=== PATIENT | female | born 1980 | race Caucasian/White ===

== ENCOUNTER 2017-12-14 15:35 | Inpatient (IN) | payer MEDICAID ==
[~2017-12-14] VITALS: Ht 160 cm; Wt 94.9 kg
[2017-12-14] MEDS ORDERED: ONDANSETRON HCL 4 MG/2 ML VIAL IV PUSH PRN (18:00)
[2017-12-14] MEDS ORDERED: RESP: ALBUTEROL 2.5 MG/IPRATROPIUM 0.5 MG NEB (PRN) INH (18:00)
[2017-12-14] MEDS ORDERED: HYDROmorphone HCL PF 1 MG/ML VIAL IV PUSH PRN (18:00)
[2017-12-14] MEDS ORDERED: CHLORHEXIDINE GLUCONATE 2 % 1 PACK (2 CLOTHS) TOP PRN (18:00)
[2017-12-14] MEDS ORDERED: MISCELLANEOUS NURSING INFORMATION XX SCH (18:00)
[2017-12-14] MEDS: HYDROmorphone HCL PF 2 MG/ML VIAL IV PRN ×3 (18:15→22:43)
--- NOTE | 2017-12-14 18:38 | HHI.HP ---
[facility] Service Critical Care Medicine Primary Care Physician Unknown Admission Diagnosis Diagnosis: Chief Complaint: right flank pain Travel History International Travel<30 Days: No Contact w/Intl Traveler <30 Da: No Traveled to Known Affected Are: No History of Present Illness This is a 37yF with a history of renal calculi who presented to OSH on 12/08 with complaints of right flank pain and was found to have obstructive nephrolithiasis and obstructive pyelonephritis. She underwent ureteral stenting on 12/11 which per urology report was unsuccessful at resolving right hydronephrosis. her pain persists and she is transferred to [facility] for higher level of care and urology specialists. I evaluated the patient upon arrival to the ICU. patient is awake, alert. does complain of right flank pain. denies fever, chills, nausea, vomiting or other symptoms. remainder of the ROS negative. Of note, the patient has a documented positive urinalysis for nitrites, LE, and wbcs on 12/09. physician documentation states that she has a history of e. coli and enterococcus faecalis UTIs which in the past were sensitive to Levaquin. She was initially placed on Levaquin but then reportedly switched to Rocephin on 12/11. Physician documentation on 12/13 states she is growing e. coli that is sensitive to Rocephin, but no microbiologic data has been sent with the patient. Review of Systems Constitutional: DENIES: Fatigue, Fever, Chills Respiratory: DENIES: Shortness of breath Cardiovascular: DENIES: Chest pain Gastrointestinal: DENIES: Abdominal pain, Nausea, Vomiting Genitourinary: COMPLAINS OF: Dysuria, DENIES: Urinary frequency, Urinary incontinence, Hematuria Musculoskeletal: DENIES: Back pain, Neck pain Neurologic: DENIES: Headache ROS + right flank pain Past Family Social History Allergies: Coded Allergies: amoxicillin (Verified Allergy, Severe, 12/14/17) clavulanic acid (Verified Allergy, Severe, 12/14/17) gabapentin (Verified Allergy, Severe, 12/14/17) Past Medical History recurrent renal calculi patient did not recount any additional past medical history. per OSH reports: HCV mildly elevated transaminases prior MRSA bacteremia Past Surgical History lithotripsy Reported Medications none Active Ordered Medications See MAR Family History negative for kidney stones or genitourinary problems. Social History smokes 1 pack ever 3 days, denies any etoh use. denies other drugs. 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 Physical Exam Physical Exam gen: young female, sitting in bed, in distress due to flank pain heent: nc. at. perrl. mmm. neck: no jvd. trachea midline. chest: room air. unlabored. equal chest rise cv: normal rate, regular rhythm. sinus. abd: soft, nontender anteriorly. +CVA tenderness on the right with only light palpation. no peritoneal guarding. extr: no peripheral edema. extremities are warm and well perfused. distal pulses 2+ neuro: RASS 0. GCS 15. follows commands. no focal deficits. Caprini VTE Risk Assessment Caprini VTE Risk Assessment: Mod/High Risk (score >= 2) Caprini Risk Assessment Model Point Value = 1 Point Value = 2 Point Value = 3 Point Value = 5 Age 41-60 Minor surgery BMI > 25 kg/m2 Swollen legs Varicose veins or History of unexplained or recurrent spontaneous Oral contraceptives or hormone replacement Sepsis (< 1 month) Serious lung disease, including pneumonia (< 1 month) Abnormal pulmonary function Acute myocardial infarction Congestive heart failure (< 1 month) History of inflammatory bowel disease Medical patient at bed rest Age 61-74 Arthroscopic surgery Major open surgery (> 45 min) Laparoscopic surgery (> 45 min) Malignancy Confined to bed (> 72 hours) Immobilizing plaster cast Central venous access Age >= 75 History of VTE Family history of VTE Factor V Leiden Prothrombin [id number] Lupus anticoagulant Anticardiolipin antibodies Elevated serum homocysteine Heparin-induced thrombocytopenia Other congenital or acquired thrombophilia Stroke (< 1 month) Elective arthroplasty Hip, pelvis, or leg fracture Acute spinal cord injury (< 1 month) Prophylaxis Regimen Total Risk Factor Score Risk Level Prophylaxis Regimen 0-1 Low Early ambulation 2 Moderate Order ONE of the following: *Sequential Compression Device (SCD) *Heparin 5000 units SQ BID 3-4 Higher Order ONE of the following medications: *Heparin 5000 units SQ TID *Enoxaparin/Lovenox 40 mg SQ daily (WT < 150 kg, CrCl > 30 mL/min) *Enoxaparin/Lovenox 30 mg SQ daily (WT < 150 kg, CrCl > 10-29 mL/min) *Enoxaparin/Lovenox 30 mg SQ BID (WT < 150 kg, CrCl > 30 mL/min) AND/OR *Sequential Compression Device (SCD) 5 or more Highest Order ONE of the following medications: *Heparin 5000 units SQ TID (Preferred with Epidurals) *Enoxaparin/Lovenox 40 mg SQ daily (WT < 150 kg, CrCl > 30 mL/min) *Enoxaparin/Lovenox 30 mg SQ daily (WT < 150 kg, CrCl > 10-29 mL/min) *Enoxaparin/Lovenox 30 mg SQ BID (WT < 150 kg, CrCl > 30 mL/min) AND *Sequential Compression Device (SCD) Assessment and Plan Assessment and Plan Assessment: 37yF with recurrent renal calculi admitted with obstructive pyelonephritis and right obstructive hydronephrosis. I have spoken with urology and interventional radiology. we will repeat non-contrasted CT Abd/pelvis to evaluate amount of residual hydronephrosis. keep NPO at midnight for possible percutaneous nephrostomy tube. iv pain control. will obtain urine culture here and attempt to obtain OSH micro records. will continue Rocephin empirically until data can be obtained. Hemodynamically stable and can transfer out of ICU. Obstructive Hydronephrosis - consult urology - NPO at NM for possible percutaneous nephrostomy tube - interventional radiology consult - send CMP, CBC, coags, type and screen to eval trend in renal function Obstructive pyelonephritis - continue empiric Rocephin 1gm iv q24h - send u/a - f/u micro results from OSH SCDs hold pharmacologic DVT prophylaxis for possible intervention tomorrow no evidence-based indication for GI prophylaxis at this time. Dispo: stable for transfer to floor. consult hospitalist. I certify that inpatient services are required and the patient has an estimated LOS of greater than 2 midnights. The patient has high risk obstructive uropathy and pyelonephritis which requires inpatient pain medication, management by urology with the possible complications of acute worsening kidney failure. Rene Rivera MD Dec 14, 2017 18:38
[2017-12-14 18:59] LABS: HEMATOCRIT 36.2 % (35.0-46.0); HEMOGLOBIN 12.3 GM/DL (11.6-15.3); MEAN CELL VOLUME 83.9 FL (80.0-100.0); MEAN CORPUSCULAR HEMOGLOBIN 28.5 PG (27.0-34.0); MEAN CORPUSCULAR HGB CONC 33.9 % (32.0-36.0); MEAN PLATELET VOLUME 7.8 FL (7.0-11.0); PLATELET COUNT 326 TH/MM3 (150-450); RED BLOOD COUNT 4.31 MIL/MM3 (4.00-5.30); RED CELL DISTRIBUTION WIDTH 13.2 % (11.6-17.2); WHITE BLOOD COUNT 7.4 TH/MM3 (4.0-11.0)
[2017-12-14 19:08] LABS: AST (GOT) 102 U/L (15-37); BICARBONATE 24.8 MEQ/L (21.0-32.0); BLOOD UREA NITROGEN 7 MG/DL (7-18); CALCIUM 8.6 MG/DL (8.5-10.1); CHLORIDE 109 MEQ/L (98-107); CREATININE 0.81 MG/DL (0.50-1.00); GLOMERULAR FILTRATION RATE 80 ML/MIN (>89); GLUCOSE,RANDOM 71 MG/DL (74-106); SODIUM (NA) 140 MEQ/L (136-145)
[2017-12-14 19:10] LABS: ALT (GPT) 150 U/L (10-53)
[2017-12-14 19:13] LABS: ALKALINE PHOSPHATASE 116 U/L (45-117); TOTAL BILIRUBIN ADULT 0.2 MG/DL (0.2-1.0); TOTAL PROTEIN 7.4 GM/DL (6.4-8.2)
--- NOTE | 2017-12-14 19:19 | RADRPT ---
EXAM DATE/TIME: 12/14/2017 18:49 [place] COMPARISON: No previous studies available for comparison. INDICATIONS : Abdominal pain evaluate for right hydronephrosis. ORAL CONTRAST: No oral contrast ingested. RADIATION DOSE: 15.38 CTDIvol (mGy) MEDICAL HISTORY : Renal calculi. hydronephrosis SURGICAL HISTORY : ureteral stent, lithrotripsy ENCOUNTER: Initial ACUITY: 1 week PAIN SCALE: Non-responsive LOCATION: Bilateral Abdomen TECHNIQUE: Volumetric scanning of the abdomen and pelvis was performed. Using automated exposure control and ad justment of the mA and/or kV according to patient size, radiation dose was kept as low as reasonably achievable to obtain optimal diagnostic quality images. DICOM format image data is available electro nically for review and comparison. FINDINGS: Lung bases are clear. No acute findings in the liver, spleen, adrenals, left kidney or pancreas. No c alcified gallstones. There is a staghorn calculus lower pole right kidney measuring up to 4.4 x 2.1 cm. Right-sided ureter al stent present extending from the right renal pelvis to the bladder. There is mild constipation. No free air or free fluid. No adenopathy. No acute bony abnormalities. De generative changes of the sacroiliac joints. CONCLUSION: 1. Staghorn calculus right kidney with right ureteral stent present. Mild dilatation of right renal c ollecting system and right ureter. No left-sided renal calculi or obstructive uropathy. Dong Madden MD on December 14, 2017 at 19:14 Board Certified Radiologist. This report was verified electronically.
[2017-12-14 20:00] VITALS: BP 129/83; PULSE 70; PULSE 77; RESP 22; TEMP 98.7; O2SAT 99
[2017-12-14 20:43] LABS: INTERNATIONAL NORMALIZED RATIO 1.1 RATIO; PROTHROMBIN TIME - PATIENT 10.8 SEC (9.8-11.6)
[2017-12-14 21:00] VITALS: BP 129/54; PULSE 72; RESP 22; O2SAT 100
[2017-12-14] MEDS: cefTRIAXone INJ 1,000 MG in SODIUM CHLORIDE 0.9% INJ 100 ML IV SCH (21:33)
[2017-12-14 22:47] VITALS: BP 117/68; PULSE 73; PULSE 77; RESP 18; TEMP 98.3; O2SAT 96
[2017-12-14 23:55] LABS: BACTERIA, URINE RARE /hpf; BILIRUBIN, URINE NEG (NEG); BLOOD, URINE MOD (NEG); GLUCOSE,URINE NEG (NEG); KETONE, URINE NEG (NEG); MUCUS URINE FEW /lpf (OCC); NITRITE,URINE NEG (NEG); SQUAMOUS EPITHELIAL CELL URINE 5 /hpf (0-5); URINE COLOR YELLOW (YELLW/STRAW); URINE LEUKOCYTE ESTERASE LARGE (NEG); WHITE BLOOD CELL CLUMPS FEW
[2017-12-15] VITALS (8 sets, daily range): BP systolic 123–143; BP diastolic 62–80; PULSE 64–83; RESP 17–18; TEMP 97.8–98.8; O2SAT 96–97
[2017-12-15] MEDS: HYDROmorphone HCL PF 2 MG/ML VIAL IV PRN ×7 (00:52→18:55)
[2017-12-15] MEDS: CHLORHEXIDINE GLUCONATE 2 % 1 PACK (2 CLOTHS) TOP SCH (03:38)
--- NOTE | 2017-12-15 09:52 | HHI.PR ---
Subjective Remarks The patient said that her pain was poorly controlled. She said she has had over 50 kidney stones since the age of 10. She said she has tried to get rid of soda from her diet. She said she was unsure of when she was going for her procedure. Discussed with nursing. Objective Vitals Vital Signs Date Time Temp Pulse Resp B/P (MAP) Pulse Ox O2 Delivery O2 Flow Rate FiO2 12/15/17 08:00 98.1 65 17 123/80 (94) 96 12/15/17 05:06 64 12/15/17 04:00 98.1 72 18 124/75 (91) 96 12/15/17 00:00 98.5 75 18 128/62 (84) 97 12/15/17 00:00 80 12/14/17 22:47 77 12/14/17 22:47 98.3 73 18 117/68 (84) 96 12/14/17 21:56 Room Air 12/14/17 21:00 72 22 129/54 (79) 100 12/14/17 20:00 98.7 70 22 129/83 (98) 99 12/14/17 20:00 77 12/14/17 19:00 100 Room Air I/O 12/14/17 12/14/17 12/14/17 12/15/17 12/15/17 12/15/17 07:00 15:00 23:00 07:00 15:00 23:00 Intake Total 480 ml Output Total 350 ml Balance 130 ml Intake Oral 480 ml Output Urine Total 350 ml # Voids 2 Result Diagram: 12/14/17 1610 12/14/17 1610 Imaging Last Impressions Abdomen/Pelvis CT 12/14/17 0000 Signed Impressions: Service Date/Time: Thursday, December 14, 2017 18:49 - CONCLUSION: 1. Staghorn calculus right kidney with right ureteral stent present. Mild dilatation of right renal collecting system and right ureter. No left-sided renal calculi or obstructive uropathy. Dong Madden MD Objective Remarks gen: appears uncomfortable. heent: nc. at. perrl. mmm. neck: no jvd. trachea midline. chest: CTAB. cv: normal rate, regular rhythm. abd: soft, nontender anteriorly. +CVA tenderness on the right with only light palpation. no peritoneal guarding. extr: no peripheral edema. extremities are warm and well perfused. distal pulses 2+ neuro: follows commands. no focal deficits. Medications and IVs Current Medications Medications (Trade) Dose Ordered Sig/Melba Route Start Time Stop Time Status Last Admin (Zofran Inj) 4 mg Q6H PRN IV PUSH 12/14/17 18:00 (Duoneb Neb) 1 ampule Q2HR NEB PRN INH 12/14/17 18:00 Miscellaneous Information 1 Q361D XX 12/14/17 18:00 12/14/17 18:09 (Chlorhexidine 2% Cloth) 3 pack Taper DAILY@04 TOP 12/15/17 04:00 12/11/18 03:59 (Chlorhexidine 2% Cloth) 3 pack UNSCH PRN TOP 12/14/17 18:00 (Dilaudid Pf Inj) 0.5 mg Q2H PRN IV 12/14/17 18:15 12/15/17 07:55 Ceftriaxone Sodium 1000 mg/ Sodium Chloride 100 ml @ 200 mls/hr Q24H IV 12/14/17 21:00 12/14/17 21:33 A/P Assessment and Plan Obstructive Hydronephrosis 37yF with recurrent renal calculi admitted with obstructive pyelonephritis and right obstructive hydronephrosis. CT abdomen: Staghorn calculus right kidney with right ureteral stent present; Mild dilatation of right renal collecting system and right ureter; No left-sided renal calculi or obstructive uropathy. - iv and po pain control with a bowel regimen. - will obtain urine culture here and attempt to obtain OSH micro records; will continue Rocephin empirically. - interventional radiology and urology consulted. - IVFs. Obstructive pyelonephritis Urine culture pending. - continue empiric Rocephin 1gm iv q24h. - f/u micro results from OSH. Hypoglycemia Likely s/t decreased po intake. - D51/2NS. Elevated LFTs The pt has a history of HCV. - trend LFTs. PPx: SCDs Discharge Planning Await urology and IR input Pankaj Culver DO Dec 15, 2017 09:52
[2017-12-15] MEDS: DEXT 5%-NACL 0.45% 1000 ML INJ 1,000 ML IV SCH ×2 (10:15→19:52)
--- NOTE | 2017-12-15 11:13 | PD.CONS ---
HPI Service Urology Consult Requested By Reason for Consult nephrolithiasis Primary Care Physician Unknown Diagnosis: History of Present Illness 37yo female with history of nephrolithiasis transferred from [facility] due to large right renal stone. Patient was experiencing severe pain and hydronephrosis and underwent right ureteral stent placement on 12/11/17. However , her clinic picture did not change with persistent pain and hydronephrosis. She has a history of kidney stones and has had several lithotripsy procedures in the past. No fevers at this time. No N/V. Pain is located in the right flank. CT scan identified a large right staghorn calculus. Review of Systems ROS Limitations: Clinical Condition Constitutional: DENIES: Fever Eyes: DENIES: Blurred vision Ears, nose, mouth, throat: DENIES: Hearing loss Respiratory: DENIES: Cough Cardiovascular: DENIES: Chest pain Gastrointestinal: COMPLAINS OF: Abdominal pain, DENIES: Nausea Genitourinary: COMPLAINS OF: Urinary frequency, Hematuria Musculoskeletal: COMPLAINS OF: Back pain Integumentary: DENIES: Rash Neurologic: DENIES: Headache Psychiatric: DENIES: Confusion Except as stated in HPI: all other systems reviewed are Neg Past Family Social History Past Medical History recurrent renal calculi HCV mildly elevated transaminases prior MRSA bacteremia Past Surgical History lithotripsy Allergies: Coded Allergies: amoxicillin (Verified Allergy, Severe, 12/14/17) clavulanic acid (Verified Allergy, Severe, 12/14/17) gabapentin (Verified Allergy, Severe, 12/14/17) Active Ordered Medications Current Medications Medications (Trade) Dose Ordered Sig/Melba Route Start Time Stop Time Status Last Admin (Zofran Inj) 4 mg Q6H PRN IV PUSH 12/14/17 18:00 (Duoneb Neb) 1 ampule Q2HR NEB PRN INH 12/14/17 18:00 Miscellaneous Information 1 Q361D XX 12/14/17 18:00 12/14/17 18:09 (Chlorhexidine 2% Cloth) 3 pack Taper DAILY@04 TOP 12/15/17 04:00 12/11/18 03:59 (Chlorhexidine 2% Cloth) 3 pack UNSCH PRN TOP 12/14/17 18:00 Ceftriaxone Sodium 1000 mg/ Sodium Chloride 100 ml @ 200 mls/hr Q24H IV 12/14/17 21:00 12/14/17 21:33 (Dilaudid Pf Inj) 0.5 mg Q4H PRN IV 12/15/17 10:15 (Roxicodone) 5 mg Q4H PRN PO 12/15/17 10:15 (Roxicodone) 10 mg Q4H PRN PO 12/15/17 10:15 12/15/17 10:22 Dextrose/Sodium Chloride 1,000 ml @ 100 mls/hr Q10H IV 12/15/17 10:15 12/15/17 10:15 (Yasmin-Colace) 1 tab BID PO 12/15/17 21:00 Family History negative for kidney stones or genitourinary problems. Social History smokes 1 pack ever 3 days, denies any etoh use. denies other drugs. history of IVDA. Physical Exam Vital Signs Date Time Temp Pulse Resp B/P (MAP) Pulse Ox O2 Delivery O2 Flow Rate FiO2 12/15/17 08:00 98.1 65 17 123/80 (94) 96 12/15/17 05:06 64 12/15/17 04:00 98.1 72 18 124/75 (91) 96 12/15/17 00:00 98.5 75 18 128/62 (84) 97 12/15/17 00:00 80 12/14/17 22:47 77 12/14/17 22:47 98.3 73 18 117/68 (84) 96 12/14/17 21:56 Room Air 12/14/17 21:00 72 22 129/54 (79) 100 12/14/17 20:00 98.7 70 22 129/83 (98) 99 12/14/17 20:00 77 12/14/17 19:00 100 Room Air Physical Exam GENERAL: This is a well-nourished, well-developed patient, in no apparent distress. SKIN: No rashes, ecchymoses or lesions. Cool and dry. HEAD: Atraumatic. Normocephalic. No temporal or scalp tenderness. EYES: Extraocular motions intact. No scleral icterus. No injection or drainage. ENT: Nose without bleeding, purulent drainage. Airway patent. NECK: Trachea midline. No JVD or lymphadenopathy. CARDIOVASCULAR: Normal pulses RESPIRATORY: Nonlabored GASTROINTESTINAL: Abdomen soft, non-tender, nondistended. GENITOURINARY: Right flank pain MUSCULOSKELETAL: Extremities without clubbing, cyanosis, or edema. . NEUROLOGICAL: Awake and alert. Motor and sensory grossly within normal limits. Normal speech. Lab results reviewed: Yes Laboratory Tests Test 12/14/17 16:10 12/14/17 20:05 12/14/17 23:23 White Blood Count 7.4 Red Blood Count 4.31 Hemoglobin 12.3 Hematocrit 36.2 Mean Corpuscular Volume 83.9 Mean Corpuscular Hemoglobin 28.5 Mean Corpuscular Hemoglobin Concent 33.9 Red Cell Distribution Width 13.2 Platelet Count 326 Mean Platelet Volume 7.8 Nasal Screen MRSA (PCR) MRSA NOT DETECTED Blood Urea Nitrogen 7 Creatinine 0.81 Random Glucose 71 Total Protein 7.4 Albumin 3.0 Calcium Level 8.6 Alkaline Phosphatase 116 Aspartate Amino Transf (AST/SGOT) 102 Alanine Aminotransferase (ALT/SGPT) 150 Total Bilirubin 0.2 Sodium Level 140 Potassium Level 3.8 Chloride Level 109 Carbon Dioxide Level 24.8 Anion Gap 6 Estimat Glomerular Filtration Rate 80 Human Chorionic Gonadotropin, Quant LESS THAN 1 Prothrombin Time 10.8 Prothromb Time International Ratio 1.1 Activated Partial Thromboplast Time 27.3 Urine Color YELLOW Urine Turbidity HAZY Urine pH 7.0 Urine Specific [place] 1.011 Urine Protein 30 Urine Glucose (UA) NEG Urine Ketones NEG Urine Occult Blood MOD Urine Nitrite NEG Urine Bilirubin NEG Urine Urobilinogen LESS THAN 2.0 Urine Leukocyte Esterase LARGE Urine RBC 72 Urine WBC Urine WBC Clumps FEW Urine Squamous Epithelial Cells 5 Urine Bacteria RARE Urine Mucus FEW Microscopic Urinalysis Comment CATH-CULTURE IND Date/Time Source Procedure Growth Status 12/14/17 20:23 Blood Peripheral Aerobic Blood Culture Pending Received 12/14/17 20:23 Blood Peripheral Anaerobic Blood Culture Pending Received 12/14/17 23:23 Urine Catheterized Urine Urine Culture Pending Received Result Diagram: 12/14/17 1610 12/14/17 1610 Personally reviewed images: Yes Imaging Last Impressions Abdomen/Pelvis CT 12/14/17 0000 Signed Impressions: Service Date/Time: Thursday, December 14, 2017 18:49 - CONCLUSION: 1. Staghorn calculus right kidney with right ureteral stent present. Mild dilatation of right renal collecting system and right ureter. No left-sided renal calculi or obstructive uropathy. Dong Madden MD Assessment and Plan Problem List: (1) Nephrolithiasis ICD Code: N20.0 - Calculus of kidney Assessment and Plan -Large right staghorn calculus -Given the signficant size of the stone she will eventually need percutaneous nephrolithotripsy to treat the stone -Therefore, recommend IR placement of a right nephrostomy tube to alleviate any obstruction and drain the kidney adequetaly to clear nay infection -Continue abx -Do not recommend treatment of her stone burden during this hospitalization due to risk of infection -Once patient is medically stable, she may be discharge with follow-up with Urology either here in [facility] or with Urology at her transferring facility for definitive treatment of her stone burden -Please call with questions Jd Philippe MD Dec 15, 2017 11:13
[2017-12-15] MEDS: DOCUSATE SODIUM 50 MG/SENNA 8.6 MG TAB PO SCH (19:52)
[2017-12-15] MEDS: cefTRIAXone INJ 1,000 MG in SODIUM CHLORIDE 0.9% INJ 100 ML IV SCH (19:52)
[2017-12-15] MEDS ORDERED: HYDROmorphone HCL PF 2 MG/ML VIAL IV PUSH ONE (21:30)
[2017-12-16] VITALS (10 sets, daily range): BP systolic 104–140; BP diastolic 56–80; PULSE 65–88; RESP 17–20; TEMP 97.8–98.4; O2SAT 97–99
[2017-12-16] MEDS: HYDROmorphone HCL PF 2 MG/ML VIAL IV PRN ×6 (00:26→20:40)
[2017-12-16] MEDS: CHLORHEXIDINE GLUCONATE 2 % 1 PACK (2 CLOTHS) TOP SCH (04:00)
[2017-12-16] MEDS: DEXT 5%-NACL 0.45% 1000 ML INJ 1,000 ML IV SCH ×2 (05:41→16:46)
[2017-12-16 05:50] LABS: ALBUMIN 2.9 GM/DL (3.4-5.0); AST (GOT) 98 U/L (15-37); BICARBONATE 27.8 MEQ/L (21.0-32.0); BLOOD UREA NITROGEN 8 MG/DL (7-18); CALCIUM 8.8 MG/DL (8.5-10.1); CHLORIDE 105 MEQ/L (98-107); CREATININE 0.88 MG/DL (0.50-1.00); GLOMERULAR FILTRATION RATE 73 ML/MIN (>89); GLUCOSE,RANDOM 104 MG/DL (74-106); SODIUM (NA) 139 MEQ/L (136-145)
[2017-12-16 05:51] LABS: ALT (GPT) 151 U/L (10-53)
[2017-12-16 05:53] LABS: ALKALINE PHOSPHATASE 120 U/L (45-117); TOTAL BILIRUBIN ADULT 0.3 MG/DL (0.2-1.0); TOTAL PROTEIN 7.6 GM/DL (6.4-8.2)
[2017-12-16] MEDS: DOCUSATE SODIUM 50 MG/SENNA 8.6 MG TAB PO SCH ×2 (08:28→19:40)
[2017-12-16] MEDS ORDERED: POTASSIUM CHLORIDE 25 MEQ EFFERVESCENT TAB PO ONE (09:30)
--- NOTE | 2017-12-16 12:39 | HHI.PR ---
Subjective Remarks The patient was resting in bed. She was wondering if she can go home after her procedure tomorrow. Said her pain was still not very well controlled. She says her family was coming to visit her today. Discussed with nursing. Objective Vitals Vital Signs Date Time Temp Pulse Resp B/P (MAP) Pulse Ox O2 Delivery O2 Flow Rate FiO2 12/16/17 08:00 98.3 83 17 124/59 (80) 97 12/16/17 05:08 18 12/16/17 04:28 98.0 80 20 118/74 (89) 98 12/16/17 04:17 18 12/16/17 03:45 69 12/16/17 00:02 65 12/16/17 00:00 98.1 78 18 140/80 (100) 97 12/15/17 22:00 18 12/15/17 20:08 83 12/15/17 20:00 98.8 74 18 126/68 (87) 96 12/15/17 16:00 98.0 66 17 127/69 (88) 97 I/O 12/15/17 12/15/17 12/15/17 12/16/17 12/16/17 12/16/17 07:00 15:00 23:00 07:00 15:00 23:00 Intake Total 1520 ml 1760 ml Balance 1520 ml 1760 ml Intake Oral 720 ml 760 ml IV Total 800 ml 1000 ml # Voids 2 10 4 # Bowel Movements 0 Result Diagram: 12/14/17 1610 12/16/17 0436 Imaging Last Impressions Abdomen/Pelvis CT 12/14/17 0000 Signed Impressions: Service Date/Time: Thursday, December 14, 2017 18:49 - CONCLUSION: 1. Staghorn calculus right kidney with right ureteral stent present. Mild dilatation of right renal collecting system and right ureter. No left-sided renal calculi or obstructive uropathy. Dong Madden MD Objective Remarks gen: appears uncomfortable. heent: nc. at. perrl. mmm. neck: no jvd. trachea midline. chest: CTAB. cv: normal rate, regular rhythm. abd: soft, nontender anteriorly. +CVA tenderness on the right.. no peritoneal guarding. extr: no peripheral edema. extremities are warm and well perfused. distal pulses 2+ neuro: follows commands. no focal deficits. psych: mood and affect appropriate. Medications and IVs Current Medications Medications (Trade) Dose Ordered Sig/Melba Route Start Time Stop Time Status Last Admin (Zofran Inj) 4 mg Q6H PRN IV PUSH 12/14/17 18:00 12/16/17 00:25 (Duoneb Neb) 1 ampule Q2HR NEB PRN INH 12/14/17 18:00 Miscellaneous Information 1 Q361D XX 12/14/17 18:00 12/14/17 18:09 (Chlorhexidine 2% Cloth) 3 pack Taper DAILY@04 TOP 12/15/17 04:00 12/11/18 03:59 (Chlorhexidine 2% Cloth) 3 pack UNSCH PRN TOP 12/14/17 18:00 Ceftriaxone Sodium 1000 mg/ Sodium Chloride 100 ml @ 200 mls/hr Q24H IV 12/14/17 21:00 12/15/17 19:52 (Dilaudid Pf Inj) 0.5 mg Q4H PRN IV 12/15/17 10:15 12/16/17 08:31 (Roxicodone) 5 mg Q4H PRN PO 12/15/17 10:15 (Roxicodone) 10 mg Q4H PRN PO 12/15/17 10:15 12/16/17 10:57 Dextrose/Sodium Chloride 1,000 ml @ 100 mls/hr Q10H IV 12/15/17 10:15 12/16/17 05:41 (Yasmin-Colace) 1 tab BID PO 12/15/17 21:00 12/16/17 08:28 A/P Assessment and Plan Obstructive Hydronephrosis 37yF with recurrent renal calculi admitted with obstructive pyelonephritis and right obstructive hydronephrosis. CT abdomen: Staghorn calculus right kidney with right ureteral stent present; Mild dilatation of right renal collecting system and right ureter; No left-sided renal calculi or obstructive uropathy. - Discussed with urology and IR. Nephrostomy tube placement planned for 12/17. - iv and po pain control with a bowel regimen. Add Toradol. - will obtain urine culture here and attempt to obtain OSH micro records; will continue Rocephin empirically. - IVFs. Obstructive pyelonephritis Urine culture pending. - continue empiric Rocephin 1gm iv q24h. - f/u micro results from OSH. Hypoglycemia Likely s/t decreased po intake. - D51/2NS. Elevated LFTs The pt has a history of HCV. - trend LFTs. Stable. Hypokalemia Likely secondary to decreased p.o. intake. - Replete and monitor. PPx: SCDs Discharge Planning D/c in AM after procedure Pankaj Culver DO Dec 16, 2017 12:39
[2017-12-16] MEDS: KETOROLAC TROMETHAMINE 30 MG/ML (IVP) VIAL IV PUSH SCH ×2 (12:42→21:44)
[2017-12-16] MEDS: cefTRIAXone INJ 1,000 MG in SODIUM CHLORIDE 0.9% INJ 100 ML IV SCH (19:40)
[2017-12-17] VITALS (11 sets, daily range): BP systolic 106–152; BP diastolic 57–86; PULSE 62–83; RESP 16–20; TEMP 97.2–98.1; O2SAT 96–100
[2017-12-17] MEDS: HYDROmorphone HCL PF 2 MG/ML VIAL IV PRN ×4 (00:45→13:54)
[2017-12-17] MEDS: DEXT 5%-NACL 0.45% 1000 ML INJ 1,000 ML IV SCH ×2 (02:15→12:15)
[2017-12-17] MEDS: CHLORHEXIDINE GLUCONATE 2 % 1 PACK (2 CLOTHS) TOP SCH (04:00)
[2017-12-17] MEDS: KETOROLAC TROMETHAMINE 30 MG/ML (IVP) VIAL IV PUSH SCH ×2 (04:39→13:01)
[2017-12-17 05:14] LABS: BICARBONATE 26.2 MEQ/L (21.0-32.0); CALCIUM 8.3 MG/DL (8.5-10.1); CREATININE 0.95 MG/DL (0.50-1.00)
[2017-12-17] MEDS: DOCUSATE SODIUM 50 MG/SENNA 8.6 MG TAB PO SCH (08:15)
[2017-12-17] MEDS ORDERED: KETAMINE HCL 500 MG/5 ML VIAL ONE (10:07)
[2017-12-17] MEDS ORDERED: IOHEXOL 350 MG/ML 50 ML BTL (for RAD DIAG) IVCONTRAST ONE (11:09)
--- NOTE | 2017-12-17 11:32 | RADRPT ---
EXAM DATE/TIME: 12/17/2017 10:31 [place] COMPARISON: No previous studies available for comparison. INDICATIONS : 37 show female with history of staghorn lower pole calculus and obstructive hydronephrosis in status post ureteral stent placement with persistent obstruction of the upper pole calyces. Pectineus access has been requested for improved drainage of the upper pole calyces as well as to allow for the near term nephrolithotomy. MEDICAL HISTORY : Renal calculi SURGICAL HISTORY : Lithrotripsy ENCOUNTER: Initial ACUITY: 4 - 6 days PAIN SCORE: 7/10 LOCATION: Right low back FLUORO TIME: 5.4 minutes IMAGE SERIES: 0 CONTRAST: 10 cc Omnipaque (iohexol) 350 DEVICE(S): 1.) 8 Martiniquais nephrostomy catheter Anesthesia and pain control was provided by the Anesthesia department. PROCEDURE : 1. Ultrasound-guided puncture of the kidney. 2. Antegrade percutaneous pyelogram. 3. Percutaneous nephrostomy placement. 4. Conscious sedation with continuous EKG and oximetry monitoring. The risks, benefits and alternatives to the procedure were explained and verbal and written consent w as obtained. The site was prepped in sterile fashion. Full sterile technique was used, including ca p, mask, sterile gloves and gown and a large sterile sheet. Hand hygiene and 2% chlorhexidine and/or betadine/alcohol prep was utilized per protocol for cutaneous antisepsis. Sterile gel and sterile probe cover were utilized for ultrasound guidance. The skin and subcutaneous tissues were infiltrate d with local anesthetic solution. With ultrasound and fluoroscopic guidance the selected kidney was punctured and a percutaneous antegr nida pyelogram was performed demonstrating a dilated collecting system. Serial dilatation was perform ed and a prescribed nephrostomy tube was placed within the renal pelvis and sutured in place. An AccuStick needle was advanced into the lower pole calyx targeting the calculus. Access was obtaine d following a single puncture and a 0.018 wire was successfully advanced to the superior pole calyx. Tract was subsequently dilated and an 8 Martiniquais nephrostomy catheter was advanced into the superior po le calyx. Final position was confirmed with contrast and the catheter was secured into place. CONCLUSION: Uncomplicated nephrostomy tube placement as above. Alejandro Huang MD on December 17, 2017 at 11:27 Board Certified Radiologist. This report was verified electronically.
[2017-12-17] MEDS ORDERED: MIDAZOLAM HCL 2 MG/2 ML VIAL ONE (11:34)
[2017-12-17] MEDS ORDERED: OXYC-392 PO (14:02)
[2017-12-17] MEDS ORDERED: IBUP1TAB7 PO (14:02)
--- NOTE | 2017-12-17 14:04 | HHI.DCPOC ---
Discharge Care Plan Diagnosis: (1) Nephrolithiasis Goals to Promote Your Health * To prevent worsening of your condition and complications * To maintain your health at the optimal level Directions to Meet Your Goals Take your medications as prescribed Follow your dietary instruction Follow activity as directed Keep your appointments as scheduled Take your immunizations and boosters as scheduled If your symptoms worsen call your PCP, if no PCP go to Urgent Care Center or Emergency Room Smoking is Dangerous to Your Health. Avoid second hand smoke Call the 24-hour hour crisis hotline for domestic abuse at Pankaj Culver DO Dec 17, 2017 14:04
--- NOTE | 2017-12-17 14:14 | HHI.DS ---
Discharge Summary Admission Date Dec 14, 2017 at 17:43 Discharge Date: Dec 17, 2017 Admitting Diagnosis (1) Nephrolithiasis ICD Code: N20.0 - Calculus of kidney Diagnosis: Principal Procedures Nephrostomy tube placement Brief History - From Admission This is a 37yF with a history of renal calculi who presented to OSH on 12/08 with complaints of right flank pain and was found to have obstructive nephrolithiasis and obstructive pyelonephritis. She underwent ureteral stenting on 12/11 which per urology report was unsuccessful at resolving right hydronephrosis. her pain persists and she is transferred to [facility] for higher level of care and urology specialists. I evaluated the patient upon arrival to the ICU. patient is awake, alert. does complain of right flank pain. denies fever, chills, nausea, vomiting or other symptoms. remainder of the ROS negative. Of note, the patient has a documented positive urinalysis for nitrites, LE, and wbcs on 12/09. physician documentation states that she has a history of e. coli and enterococcus faecalis UTIs which in the past were sensitive to Levaquin. She was initially placed on Levaquin but then reportedly switched to Rocephin on 12/11. Physician documentation on 12/13 states she is growing e. coli that is sensitive to Rocephin, but no microbiologic data has been sent with the patient. CBC/BMP: 12/14/17 1610 12/17/17 0350 Significant Findings Laboratory Tests Test 12/14/17 16:10 12/14/17 20:05 12/14/17 23:23 12/16/17 04:36 Random Glucose 71 MG/DL (74-106) Albumin 3.0 GM/DL (3.4-5.0) 2.9 GM/DL (3.4-5.0) Aspartate Amino Transf (AST/SGOT) 102 U/L (15-37) 98 U/L (15-37) Alanine Aminotransferase (ALT/SGPT) 150 U/L (10-53) 151 U/L (10-53) Chloride Level 109 MEQ/L (98-107) Estimat Glomerular Filtration Rate 80 ML/MIN (>89) 73 ML/MIN (>89) Urine Turbidity HAZY (CLEAR) Urine Protein 30 mg/dL (NEG-TRACE) Urine Occult Blood MOD (NEG) Urine Leukocyte Esterase LARGE (NEG) Urine RBC 72 /hpf (0-3) Urine WBC Clumps FEW (NONE) Urine Bacteria RARE /hpf (NONE) Urine Mucus FEW /lpf (OCC) Alkaline Phosphatase 120 U/L (45-117) Potassium Level 3.4 MEQ/L (3.5-5.1) Test 12/17/17 03:50 Random Glucose 128 MG/DL (74-106) Calcium Level 8.3 MG/DL (8.5-10.1) Estimat Glomerular Filtration Rate 67 ML/MIN (>89) Imaging Last Impressions Nephrostomy 12/17/17 0000 Signed Impressions: Service Date/Time: Sunday, December 17, 2017 10:31 - CONCLUSION: Uncomplicated nephrostomy tube placement as above. Alejandro Huang MD Abdomen/Pelvis CT 12/14/17 0000 Signed Impressions: Service Date/Time: Thursday, December 14, 2017 18:49 - CONCLUSION: 1. Staghorn calculus right kidney with right ureteral stent present. Mild dilatation of right renal collecting system and right ureter. No left-sided renal calculi or obstructive uropathy. Dong Madden MD PE at Discharge gen: appears uncomfortable. heent: nc. at. perrl. mmm. neck: no jvd. trachea midline. chest: CTAB. cv: normal rate, regular rhythm. abd: soft, nontender anteriorly. +CVA tenderness on the right.. no peritoneal guarding. extr: no peripheral edema. extremities are warm and well perfused. distal pulses 2+ neuro: follows commands. no focal deficits. psych: mood and affect appropriate. Pt update on day of discharge The patient was in pain following her procedure. She said she still wanted to go home later today. She said she would be able to take care of her nephrostomy tube. She had questions about follow-up. Discussed with nursing. Hospital Course Obstructive hydronephrosis 37yF with recurrent renal calculi admitted with obstructive pyelonephritis and right obstructive hydronephrosis. CT abdomen: Staghorn calculus right kidney with right ureteral stent present; Mild dilatation of right renal collecting system and right ureter; No left-sided renal calculi or obstructive uropathy. Urine culture from OSH with growth of E coli sensitive to ceftriaxone, which was continued at this hospital. Discussed with urology and IR. Nephrostomy tube placement was performed on 12/17. The pt received iv and po pain control with a bowel regimen. Repeat urine culture with no growth. The pt completed a course of IV ceftriaxone. She will be referred to urology for definitive treatment of her stone burden. Hypoglycemia We placed the pt on D51/2NS. We advanced her diet. Elevated LFTs The pt has a history of HCV. LFTs have been stable. Hypokalemia Resolved following repletion. Her diet was advanced. Pt Condition on Discharge: Stable Discharge Disposition: Discharge Home Discharge Time: > 30 minutes Discharge Instructions DIET: Follow Instructions for: As Tolerated, No Restrictions Activities you can perform: Weight Bearing as Jose Rafael Follow up Referrals: PCP Follow-up - 1 Week Informed patient to follow up with primary care doctor in 1 week. Patient lives in [place]. Urology - 1 Week with Jd Philippe MD Informed patient to follow up with Dr. Philippe in 1 week. Provided patient with office phone number and address on appointment card. New Medications: Ibuprofen (Ibuprofen) 800 Mg Tab 800 MG PO Q8H PRN for Pain/Inflammation, #20 TAB 0 Refills Oxycodone (Oxycodone) 5 Mg Tab 5 MG PO Q6HR PRN for PAIN SCALE 1 TO 10, #10 TAB Pankaj Culver DO Dec 17, 2017 14:14
[2017-12-17] MEDS ORDERED: HYDROmorphone HCL PF 0.5 MG/0.5 ML SYRINGE IV PUSH ONE (14:30)
== END 2017-12-17 15:40 | disposition home or self-care (01) | DRG 660 ==
LOC: N03B 17:43 → N07A 21:35
PROVIDERS: ADMIT Hospitalist; ATTEND Hospitalist
PROC: 0TC33ZZ Extirpation of Matter from Right Kidney Pelvis, Percutaneous Approach (ICD-10-PCS; principal; 2017-12-17)
PROC: BT1D1ZZ Fluoroscopy of Right Kidney, Ureter and Bladder using Low Osmolar Contrast (ICD-10-PCS; 2017-12-17)
PROC: 0T9330Z Drainage of Right Kidney Pelvis with Drainage Device, Percutaneous Approach (ICD-10-PCS; 2017-12-17)
DX: N13.2 Hydronephrosis with renal and ureteral calculous obstruction (principal); E16.2 Hypoglycemia, unspecified; R74.0 Nonspecific elevation of levels of transaminase and lactic acid dehydrogenase [LDH]; E87.6 Hypokalemia; F17.210 Nicotine dependence, cigarettes, uncomplicated; Z86.14 Personal history of Methicillin resistant Staphylococcus aureus infection; Z87.442 Personal history of urinary calculi
CPT/HCPCS: 50432; 74176; 80048; 80053; 81001; 84702; 85027; 85610; 85730; 86850; 86900; 86901; 87040; 87086; 87641; 94150; C1729; C1769; C1894; J0696; J1170; J1885; J2250; J2405; J3010; Q9967